=== PATIENT | female | born 1950 | race Caucasian/White ===

== ENCOUNTER 2019-12-14 22:29 | Emergency (ER) | payer MEDICARE ==
[~2019-12-14] VITALS: Ht 165.1 cm; Wt 95.3 kg
[2019-12-14 22:32] VITALS: BP 151/73
--- NOTE | 2019-12-14 22:32 | NUR ---
PT AMBULATED TO BED WITH FAMILY
--- NOTE | 2019-12-14 22:35 | NUR ---
c/oo vertigo, dizziness x1 week and left shoulder pain x 6months. rates shoulder pain 10/10. lung sounds clear all throughout. pt is weak, dizzy, and unsteady gait. vss. a & o x4. no sob. no distress noted. pt is able to follow finger with eyes. no signs of staggering eyes. denies any blurry vision. nka. pmh: htn, anemia, fibromyalgia, ra.
[2019-12-14] MEDS ORDERED: NACL 0.9% 1,000 ML IV ONE (22:55)
[2019-12-14] MEDS ORDERED: MECLIZINE 25 MG TAB PO ONE (22:55)
[2019-12-14 23:10] LABS: BASOPHILS % (AUTO) 0.5 % (0.0-2.0); EOSINOPHILS # (AUTO) 0.1 K/uL (0-0.4); EOSINOPHILS % (AUTO) 0.7 % (0.0-4.0); HEMATOCRIT 37.1 % (36-48); HEMOGLOBIN 12.2 g/dL (12.0-16.0); LYMPHOCYTES # (AUTO) 1.1 K/uL (2.5-16.5); LYMPHOCYTES % (AUTO) 14.1 % (20.5-51.1); MEAN CORPUSCULAR HEMOGLOBIN 30 pg (27-31); MEAN CORPUSCULAR HGB CONC 33 g/dL (33-37); MEAN CORPUSCULAR VOLUME 91.5 fL (80-94); MONOCYTES # (AUTO) 0.5 K/uL (0.8-1.0); MONOCYTES % (AUTO) 6.3 % (1.7-9.3); NEUTROPHILS # (AUTO) 6.4 K/uL (1.8-7.7); NEUTROPHILS % (AUTO) 78.4 % (42.2-75.2); PLATELET COUNT (AUTO) 282 K/uL (140-450); RED BLOOD CELL COUNT(AUTO) 4.06 MIL/uL (4.20-5.40); RED CELL DISTRIBUTION WIDTH 14.8 % (11.6-13.7); WHITE BLOOD COUNT (AUTO) 8.1 K/uL (4.8-10.8)
--- NOTE | 2019-12-14 23:16 | NUR ---
pt getting transfer to ct via w/c.
[2019-12-14 23:27] LABS: ALBUMIN 3.2 g/dL (3.4-5.0); ANION GAP 15.4 (8-16); CARBON DIOXIDE 25.1 mmol/L (21-32); CREATININE 0.8 mg/dL (0.6-1.3); POTASSIUM 4.5 mmol/L (3.5-5.1); TOTAL BILIRUBIN 0.2 mg/dL (0.0-1.0)
--- NOTE | 2019-12-14 23:28 | NUR ---
pt returned back form ct via w/c.
[2019-12-14 23:56] VITALS: BP 151/73
== END 2019-12-14 23:56 | disposition home or self-care (01) ==
LOC: MED 22:29
DX: R42 Dizziness and giddiness (principal); R53.1 Weakness; M25.512 Pain in left shoulder; I10 Essential (primary) hypertension; M79.7 Fibromyalgia
CPT/HCPCS: 36415; 70450; 80053; 85025; 96360; 99284; J7030; J8597

== ENCOUNTER 2020-08-23 22:04 | Emergency (ER) | payer MEDICARE ==
[~2020-08-23] VITALS: Ht 165.1 cm; Wt 86.2 kg
[2020-08-23 22:18] VITALS: BP 197/155
[2020-08-23] MEDS: CLONIDINE HYDROCHLORIDE 0.1 MG TAB PO ONE (22:47)
[2020-08-23] MEDS: BACITRACIN OINT 500 UNITS/GM PKT TP ONE (23:32)
[2020-08-23 23:39] VITALS: BP 190/73
== END 2020-08-23 23:39 | disposition home or self-care (01) ==
LOC: MED 22:04
DX: L03.116 Cellulitis of left lower limb (principal); I10 Essential (primary) hypertension
CPT/HCPCS: 99283